=== PATIENT | male | born 1985 | race Caucasian/White ===

== ENCOUNTER 2023-12-05 11:34 | Emergency (ER) | payer SELFPAY ==
[2023-12-05 11:52] VITALS: BP 114/84; PULSE 67; RESP 16; TEMP 36.2; O2SAT 100
--- NOTE | 2023-12-05 12:16 | ED.URI ---
HPI - URI/Sore Throat General Chief Complaint: Upper Respiratory Infection Stated Complaint: COVID home test positive Time Seen by Provider: 12/05/23 12:04 Source: patient and RN notes reviewed Mode of arrival: ambulatory Limitations: no limitations History of Present Illness HPI Narrative: Patient presents today complaining of cough, body aches, headache since yesterday. Denies any additional symptoms to include shortness of breath, chest pain. Currently rates his headache 3/10 and has been taking ibuprofen and NyQuil with some relief. He had 2 positive home COVID test this morning. Related Data Home Medications Medication Instructions Recorded Confirmed No Home Medications 12/05/23 12/05/23 Allergies Allergy/AdvReac Type Severity Reaction Status Date / Time No Known Allergies Allergy Mild Unverified 12/05/23 11:40 Review of Systems Review of Systems: CONSTITUTIONAL: Denies fever, chills, or sweats.+ body aches EYES: Denies visual changes, redness, or discharge. ENT: Denies rhinorrhea, congestion, sore throat, or otalgia. CARDIOVASCULAR: Denies chest pain, palpitations, or edema. RESPIRATORY: Denies dyspnea.+ cough GASTROINTESTINAL: Denies abdominal pain, nausea, vomiting, or diarrhea. GENITOURINARY: Denies dysuria or hematuria. SKIN: Denies rash, itching, or wounds. MUSCULOSKELETAL: Denies back pain, joint pain, or myalgia. NEUROLOGIC: Denies numbness, tingling, or weakness.+ headache PSYCH: Denies depression or anxiety. PMFSH Comments At time of signature, I have reviewed and agree with nursing past medical, surgical, social and family history unless otherwise noted. Please see nursing chart for further information. There is no relevant family history pertinent to the presenting complaint Exam Narrative: GENERAL: Well-appearing, well-nourished, and in no acute distress. HEAD: Normocephalic, atraumatic. EYES: EOMI. No redness or drainage. Conjunctivae normal. ENT: Mucous membranes pink and moist. Nares clear. No rhinorrhea. TMs normal bilaterally. Throat normal. Uvula midline. NECK: Normal AROM. Supple. No lymphadenopathy. CHEST: No respiratory distress. Clear to auscultation. HEART: Regular rate and rhythm. No murmur appreciated. EXTREMITIES: Normal range of motion. No edema. SKIN: Warm, dry, no rash. Capillary refill normal. Normal skin turgor. NEURO: No focal deficits. Alert and oriented x3. Gait steady. PSYCH: Normal affect. No signs of depression or anxiety. Course Course Level of Care: Express Care Visit Vital Signs Vital signs: Vital Signs Temperature 97.2 F L 12/05/23 11:52 Pulse Rate 67 12/05/23 11:52 Respiratory Rate 16 12/05/23 11:52 Blood Pressure 114/84 12/05/23 11:52 Pulse Oximetry 100 12/05/23 11:52 Oxygen Delivery Room Air 12/05/23 11:52 Temperature 97.2 F L 12/05/23 11:52 Pulse Rate 67 12/05/23 11:52 Respiratory Rate 16 12/05/23 11:52 Blood Pressure 114/84 12/05/23 11:52 Pulse Oximetry 100 12/05/23 11:52 Oxygen Delivery Room Air 12/05/23 11:52 Reviewed MDM - URI/Sore Throat MDM Narrative Medical decision making narrative: Patient will not be retested here as he had to home positive test this morning. Has been exam remained. Work note provided. ED precautions given Differential Diagnosis Differential diagnosis: Likely other (COVID-19) Critical Care Time Critical Care Time Critical Care Time: No Discharge Plan Discharge Clinical Impression: COVID-19 Patient Disposition: Home, Self-Care Condition: Stable Instructions: COVID-19 (Coronavirus Disease 2019) (ED) Additional Instructions: Please continue [id number] medication for your symptoms. Rest and stay hydrated. As discussed, go to the ER immediately with worsening symptoms such as chest pain or shortness of breath. Follow-up with your PCP in 1 week if symptoms persist. Your blood pressure was elevated above 120/80 today at [facility]
== END 2023-12-05 12:30 | disposition home or self-care (01) ==
PROVIDERS: Emergency Provider Nurse Practitioner
DX: U07.1 COVID-19 (principal)
CPT/HCPCS: 99202; G0463